=== PATIENT | female | born 1960 | race Caucasian/White ===

== ENCOUNTER 2024-11-05 07:24 | Outpatient (CLI) | payer MEDICARE, SELFPAY ==
--- NOTE | 2024-11-05 | DI.US_ITS ---
Exam(s) US HERNIA EXAM: US HERNIA CLINICAL HISTORY: RLQ PAIN, ? HERNIA, EVALUATE FOR HERNIA,R10.31. TECHNIQUE: Ultrasound was performed using standard protocol. COMPARISON: No exams were available for comparison FINDINGS: Sonographic assessment utilizing grayscale and color Doppler imaging was performed and targeted to the area of clinical concern. There is a fatty right inguinal hernia measuring 3.7 x 1.2 x 1.7 cm. No evidence of edema or hyperemia. IMPRESSION: Small fat containing right inguinal hernia. DATA REPOSITORY:
--- NOTE | 2024-11-05 | DI.US_ITS ---
Exam(s) US LOWER EXTREMITY VENOUS LT EXAM: US LOWER EXTREMITY VENOUS LT CLINICAL HISTORY: BULGING TENDER VEIN INSIDE OF THIGH,PAIN,? DVT. TECHNIQUE: Lower extremity venous ultrasound performed using grayscale, color- flow, and spectral Doppler analysis. COMPARISON: No exams were available for comparison FINDINGS: The common femoral, femoral and popliteal veins demonstrate normal compressibility, augmentation, and color Doppler. The posterior tibial and peroneal veins are patent. No saphenous vein thrombosis venous thrombosis is seen. There is a superficial focally dilated vein in the medial distal thigh measuring 1 cm in length containing thrombus. This corresponds to the area of patient tenderness. No hematoma or Thornton's cyst is seen. IMPRESSION: Focal superficial thrombophlebitis distal thigh. No evidence of DVT. DATA REPOSITORY:
== END 2024-11-05 07:44 ==
PROVIDERS: PCP Nurse Practitioner Family; Visit Provider Nurse Practitioner Family
DX: I83.811 Varicose veins of right lower extremity with pain (principal); K40.90 Unilateral inguinal hernia, without obstruction or gangrene, not specified as recurrent
CPT/HCPCS: 76857; 93971